=== PATIENT | female | born 1965 | race Caucasian/White ===

== ENCOUNTER 2017-04-04 16:12 | Emergency (ER) | payer OTHER ==
[~2017-04-04] VITALS: Ht 165.1 cm; Wt 63.5 kg
--- NOTE | 2017-04-04 16:47 | NUR ---
PT CAME IN SENT BY OBGYJennifer DT LOW BP, REPORTED VAGINAL BLEEDING X 2 DAYS AND REPORTS NEAR SYNCOPAL EPISODE YESTERDAY. MD AT BS FOR EVAL. NOTED GENERALIZED BRUISES ALL OVER BODY. REPORTS OF GEN WEAKNESS WELL. LOW BP NOTED, OTHER VSS. IV ACCESS STARTED. BLOOD DRAWN FOR LABS. SAFETY AND COMFORT MEASURES PROVIDED. WILL MONITOR.
[2017-04-04 17:30] LABS: BASOPHILS # (AUTO) 0.1 /CMM (0.0-0.2); BASOPHILS % (AUTO) 0.7 % (0.0-2.0); EOSINOPHILS # (AUTO) 0.1 /CMM (0.0-0.7); EOSINOPHILS % (AUTO) 1.4 % (0.0-6.0); HEMATOCRIT 29 % (33-45); HEMOGLOBIN 9.4 g/dL (11.5-14.8); LYMPHOCYTES # (AUTO) 1.3 /CMM (0.8-4.8); LYMPHOCYTES % (AUTO) 18.1 % (20.0-44.0); MEAN CORPUSCULAR HEMOGLOBIN 31 PG (26.0-33.0); MEAN CORPUSCULAR HGB CONC 32 g/dl (31.0-36.0); MEAN CORPUSCULAR VOLUME 97 fL (82-100); MONOCYTES # (AUTO) 0.3 /CMM (0.1-1.30); MONOCYTES % (AUTO) 4.7 % (2.0-12.0); NEUTROPHILS # (AUTO) 5.6 /CMM (1.8-8.9); NEUTROPHILS % (AUTO) 75.1 % (43.0-81.0); PLATELET COUNT (AUTO) 301 /CMM (150-450); RDW COEFFICIENT OF VARIATION 13.1 (11.5-15.0); RED BLOOD CELL COUNT(AUTO) 3.02 MIL/uL (4.0-5.2); WHITE BLOOD COUNT (AUTO) 7.4 K/uL (4.3-11.0)
--- NOTE | 2017-04-04 17:30 | NUR ---
JAIMIE ALEMAN AT BS.
[2017-04-04 17:43] LABS: CALCIUM, SERUM 8.4 mg/dL (8.5-10.1); CREATININE 0.8 mg/dL (0.6-1.3); POTASSIUM 3.7 mmol/L (3.5-5.1)
[2017-04-04 17:56] LABS: INR 1.08 (0.87-1.13); PROTHROMBIN TIME 11.2 SECS (9.5-12.7)
[2017-04-04 18:27] VITALS: BP 103/59
--- NOTE | 2017-04-04 18:27 | NUR ---
Patient discharged to home in stable condition. Written and verbal after care instructions given. Patient verbalizes understanding of instruction.
== END 2017-04-04 18:33 | disposition home or self-care (01) ==
LOC: ER 16:13
DX: N93.8 Other specified abnormal uterine and vaginal bleeding (principal); D64.9 Anemia, unspecified; D25.9 Leiomyoma of uterus, unspecified; R79.1 Abnormal coagulation profile
CPT/HCPCS: 36415; 76856-TC; 80048-TC; 85025-TC; 85730-TC; 86850-TC; A4606; J7030; Z7610

== ENCOUNTER 2017-07-31 10:36 | Emergency (ER) | payer OTHER ==
[~2017-07-31] VITALS: Ht 167.6 cm; Wt 67.1 kg
[2017-07-31 10:47] VITALS: BP 106/72
== END 2017-07-31 11:43 | disposition home or self-care (01) ==
LOC: ER 10:44
DX: B30.9 Viral conjunctivitis, unspecified (principal); N72 Inflammatory disease of cervix uteri; N89.8 Other specified noninflammatory disorders of vagina
CPT/HCPCS: 84703; 87081; 87110; 99284; A4606; Z7610

== ENCOUNTER 2023-06-26 00:45 | Emergency (ER) | payer OTHER ==
[~2023-06-26] VITALS: Ht 165.1 cm; Wt 60.3 kg
[~2023-06-26 00:45] MED LIST: IBUP-1957 PO
[2023-06-26 01:49] VITALS: TEMP 98.1
[2023-06-26] MEDS ORDERED: LORAZEPAM 1 MG TABLET ONE (01:59)
[2023-06-26] MEDS ORDERED: LORAZEPAM INJ 2 MG/ML VIAL IVP ONE (02:00)
[2023-06-26] MEDS ORDERED: LORAZEPAM 1 MG TABLET PO ONE (02:00)
[2023-06-26 02:25] LABS: APPEARANCE,URINE CLEAR (CLEAR); BILIRUBIN,URINE NEGATIVE (NEGATIVE); BLOOD, URINE TRACE-INTA Ery/uL (NEGATIVE); COLOR,URINE YELLOW (YELLOW); KETONES,URINE NEGATIVE (NEGATIVE); LEUKOCYTE ESTERASE ,URINE NEGATIVE (NEGATIVE); NITRITE, URINE NEGATIVE (NEGATIVE); PH,URINE 6.5 (5.0-8.0); PROTEIN,URINE NEGATIVE (NEGATIVE); UGLUCOSE NEGATIVE (NEGATIVE); UROBILINOGEN,URINE 0.2 EU/dL (0.2)
[2023-06-26 02:48] LABS: ADD URINE CULTURE NO; BACTERIA,URINE None seen /HPF (None Seen); RBC,URINE 0-2 /HPF (0-2); WBC,URINE NONE SEEN /HPF (0-3)
[2023-06-26 02:58] LABS: BASOPHILS % (AUTO) 0.8 % (0.0-2.0); EOSINOPHILS # (AUTO) 0.1 K/uL (0.0-0.7); EOSINOPHILS % (AUTO) 2.7 % (0.0-6.0); HEMATOCRIT 37 % (33-45); HEMOGLOBIN 12.4 g/dL (11.5-14.8); LYMPHOCYTES # (AUTO) 1.9 K/uL (0.8-4.8); LYMPHOCYTES % (AUTO) 39.1 % (20.0-44.0); MEAN CORPUSCULAR HEMOGLOBIN 31 PG (26.0-33.0); MEAN CORPUSCULAR HGB CONC 34 g/dl (31.0-36.0); MEAN CORPUSCULAR VOLUME 91 fL (82-100); MONOCYTES # (AUTO) 0.4 K/uL (0.1-1.30); MONOCYTES % (AUTO) 8.4 % (2.0-12.0); NEUTROPHILS # (AUTO) 2.4 K/uL (1.8-8.9); PLATELET COUNT (AUTO) 223 K/uL (150-450); RED BLOOD CELL COUNT(AUTO) 4.03 MIL/uL (4.0-5.2); RED CELL DISTRIBUTION WIDTH 13.1 % (11.5-15.0)
[2023-06-26 03:07] LABS: CALCIUM, SERUM 9.3 mg/dL (8.5-10.1); CARBON DIOXIDE 27 mmol/L (21-32); CHLORIDE 102 mmol/L (98-107); CREATININE 0.7 mg/dL (0.6-1.3); GLUCOSE 117 mg/dL (74-106); POTASSIUM 3.8 mmol/L (3.5-5.1); SODIUM SERUM 137 mmol/L (136-145); UREA NITROGEN, BLOOD 23 mg/dL (7-18)
[2023-06-26 03:12] LABS: AMPHETAMINE, URINE NEGATIVE (NEGATIVE); BARBITURATE, URINE NEGATIVE (NEGATIVE); BENZODIAZEPINE, URINE NEGATIVE (NEGATIVE); CANNABINOID, URINE NEGATIVE (NEGATIVE); COCCAINE, URINE NEGATIVE (NEGATIVE); OPIATE, URINE NEGATIVE (NEGATIVE); PHENCYCLIDINE SCREEN,URINE NEGATIVE (NEGATIVE)
[2023-06-26 03:14] LABS: ACETAMINOPHEN <10 ug/ml (10-30); ALANINE AMINOTRANSFERASE 48 U/L (12-78); ALBUMIN 3.7 g/dL (3.4-5.0); ALKALINE PHOSPHATASE 44 U/L (46-116); ASPARTATE AMINOTRANSFERASE 35 U/L (15-37); BILIRUBIN,DIRECT 0.1 mg/dL (0.0-0.2); BILIRUBIN,TOTAL 0.2 mg/dL (0.2-1.0); SALICYLATE 1.4 mg/dL (2.8-20.0); TOTAL PROTEIN, SERUM 6.9 g/dL (6.4-8.2)
[2023-06-26 03:15] LABS: ALCOHOL, BLOOD < 3 mg/dL (0-10)
[2023-06-26 09:30] VITALS: BP 135/84; O2SAT 98
== END 2023-06-26 09:31 | disposition home or self-care (01) ==
LOC: ER 00:45
DX: F32.A Depression, unspecified (principal); Z60.2 Problems related to living alone; Z79.899 Other long term (current) drug therapy
CPT/HCPCS: 36415; 70450-TC; 71045-TC; 72125-TC; 80048-TC; 80076-TC; 81001; 85025-TC; G0480

== ENCOUNTER 2024-06-17 23:14 | Emergency (ER) | payer MEDICAID, OTHER ==
[~2024-06-17] VITALS: Ht 165.1 cm; Wt 58.5 kg
[2024-06-17] MEDS ORDERED: CYCL5TAB PO (23:40)
[2024-06-17] MEDS ORDERED: CYCLOBENZAPRINE 10 MG TABLET ONE (23:42)
[2024-06-17] MEDS ORDERED: IBUPROFEN 600 MG TABLET ONE (23:42)
[2024-06-17 23:50] VITALS: BP 116/71; TEMP 98; O2SAT 100
[2024-06-18] MEDS ORDERED: IBUPROFEN 600 MG TABLET PO ONE
[2024-06-18] MEDS ORDERED: CYCLOBENZAPRINE 10 MG TABLET PO ONE
== END 2024-06-17 23:51 | disposition home or self-care (01) ==
LOC: ER 23:17
DX: M54.2 Cervicalgia (principal); F32.A Depression, unspecified; Z79.1 Long term (current) use of non-steroidal anti-inflammatories (NSAID)

== ENCOUNTER 2024-06-20 23:38 | Emergency (ER) | payer MEDICAID ==
[~2024-06-20] VITALS: Ht 165.1 cm; Wt 58.1 kg
[~2024-06-20 23:38] MED LIST changes: +CYCL5TAB PO
[2024-06-21] MEDS ORDERED: IBUPROFEN 400 MG TABLET ONE (03:30)
[2024-06-21] MEDS: IBUPROFEN 400 MG TABLET PO ONE (03:31)
[2024-06-21 04:38] VITALS: BP 128/63; TEMP 97.8; O2SAT 98
== END 2024-06-21 04:38 | disposition left against medical advice (07) ==
LOC: ER 23:39
DX: R51.9 Headache, unspecified (principal); M54.2 Cervicalgia; F32.A Depression, unspecified; F22 Delusional disorders; Z79.1 Long term (current) use of non-steroidal anti-inflammatories (NSAID); Z86.79 Personal history of other diseases of the circulatory system; Z87.09 Personal history of other diseases of the respiratory system; Z60.2 Problems related to living alone

== ENCOUNTER 2025-01-01 13:17 | Emergency (ER) | payer MEDICAID ==
[~2025-01-01] VITALS: Ht 165.1 cm; Wt 54.4 kg
[2025-01-01 13:31] VITALS: TEMP 98.6
[2025-01-01 14:19] LABS: BASOPHILS # (AUTO) 0.1 K/uL (0.0-0.2); BASOPHILS % (AUTO) 1.7 % (0.0-2.0); EOSINOPHILS # (AUTO) 0.1 K/uL (0.0-0.7); EOSINOPHILS % (AUTO) 2.3 % (0.0-6.0); HEMATOCRIT 38 % (33-45); HEMOGLOBIN 12.8 g/dL (11.5-14.8); LYMPHOCYTES # (AUTO) 1.9 K/uL (0.8-4.8); LYMPHOCYTES % (AUTO) 33.2 % (20.0-44.0); MEAN CORPUSCULAR HEMOGLOBIN 31 PG (26.0-33.0); MEAN CORPUSCULAR HGB CONC 34 g/dl (31.0-36.0); MEAN CORPUSCULAR VOLUME 90 fL (82-100); MONOCYTES # (AUTO) 0.5 K/uL (0.1-1.30); MONOCYTES % (AUTO) 8.5 % (2.0-12.0); NEUTROPHILS % (AUTO) 54.3 % (43.0-81.0); PLATELET COUNT (AUTO) 218 K/uL (150-450); RED BLOOD CELL COUNT(AUTO) 4.19 MIL/uL (4.0-5.2); RED CELL DISTRIBUTION WIDTH 13.1 % (11.5-15.0); WHITE BLOOD COUNT (AUTO) 5.6 K/uL (4.3-11.0)
[2025-01-01 14:25] LABS: CALCIUM, SERUM 9.3 mg/dL (8.5-10.1); CARBON DIOXIDE 28 mmol/L (21-32); CHLORIDE 107 mmol/L (98-107); CREATININE 0.7 mg/dL (0.6-1.3); GLUCOSE 115 mg/dL (74-106); SODIUM SERUM 140 mmol/L (136-145); UREA NITROGEN, BLOOD 20 mg/dL (7-18)
[2025-01-01] MEDS ORDERED: IBUP-1490 PO (15:00)
[2025-01-01 15:29] VITALS: BP 117/85; O2SAT 97
== END 2025-01-01 15:27 | disposition home or self-care (01) ==
LOC: ER 13:19
DX: R07.89 Other chest pain (principal); F41.9 Anxiety disorder, unspecified; F32.A Depression, unspecified; Z86.79 Personal history of other diseases of the circulatory system; Z87.09 Personal history of other diseases of the respiratory system; Z79.1 Long term (current) use of non-steroidal anti-inflammatories (NSAID); Z60.2 Problems related to living alone
CPT/HCPCS: 36415; 71045-TC; 80048-TC; 84484-TC; 85025-TC; G0480